=== PATIENT | male | born 1995 | race Caucasian/White ===

== ENCOUNTER → 2018-11-18 | Outpatient (CLI) | payer BC ==
--- NOTE | 2018-11-18 14:47 | RAD ---
EXAM: Right ankle, 3 views. HISTORY: Pain. COMPARISON: None. FINDINGS: 3 views of the right ankle are obtained. There is no fracture, dislocation or subluxation. The ankle mortise is intact. There is lateral ankle soft tissue swelling. There is no osteochondral lesion. IMPRESSION: No acute osseous finding. Lateral ankle soft tissue swelling. Electronically signed by: Ping Martinez MD (11/18/2018 2:45 PM) [email or web address]
== END | disposition home or self-care (01) ==
LOC: RAD 14:19
PROVIDERS: ATTEND Physician Assistant
DX: M25.571 Pain in right ankle and joints of right foot (principal); M79.89 Other specified soft tissue disorders
CPT/HCPCS: 73610